=== PATIENT | female | born 1970 | race African-American/Black ===

== ENCOUNTER 2017-12-29 00:22 | Emergency (ER) | payer OTHER ==
[~2017-12-29] VITALS: Ht 177.8 cm; Wt 95.0 kg
[2017-12-29] MEDS ORDERED: HYDROCODONE/ACETAMINOPHEN 5/325MG TABLET PO ONE (01:00)
[2017-12-29] MEDS ORDERED: MORPHINE SULFATE 10 MG/ML CPJ IM ONE (02:15)
[2017-12-29 04:23] LABS: CLARITY URINE CLEAR (CLEAR); COLOR URINE YELLOW (YELLOW); KETONES URINE NEGATIVE (NEGATIVE); LEUKOCYTE ESTERASE URINE NEGATIVE (NEGATIVE); NITRITE URINE NEGATIVE (NEGATIVE); OCCULT BLOOD URINE TRACE (NEGATIVE); PROTEIN URINE NEGATIVE (NEGATIVE); SPECIFIC GRAVITY URINE 1.007 (1.005-1.030); UROBILINOGEN URINE 0.2 E.U./dL (0.2-1.0)
[2017-12-29 05:51] VITALS: BP 162/87
== END 2017-12-29 05:53 | disposition home or self-care (01) ==
LOC: ER 00:22
DX: S19.9XXA Unspecified injury of neck, initial encounter (principal); S60.052A Contusion of left little finger without damage to nail, initial encounter; M25.572 Pain in left ankle and joints of left foot; M25.571 Pain in right ankle and joints of right foot; R31.9 Hematuria, unspecified; V49.59XA Passenger injured in collision with other motor vehicles in traffic accident, initial encounter; Y93.89 Activity, other specified; Y92.89 Other specified places as the place of occurrence of the external cause; Y99.8 Other external cause status
CPT/HCPCS: 72125; 73130; 73610; 81003; 81025; 96372; 99285; J2270